=== PATIENT | female | born 1945 | race African-American/Black ===

== ENCOUNTER 2018-09-26 15:21 | Inpatient (IN) | payer MEDICARE, OTHER, MEDICAID ==
[~2018-09-26] VITALS: Ht 162.6 cm; Wt 72.2 kg
[2018-09-26] MEDS ORDERED: SODIUM CHLORIDE 0.9% 1,000 ML IV ONE (16:07)
[2018-09-26 16:56] LABS: CHLORIDE 103 mEq/L (98-107)
[2018-09-26 16:57] LABS: BASOPHILS % 0.6 % (0.0-2.0); EOSINOPHILS % 1.9 % (0.0-5.0); HEMATOCRIT. 33.7 % (36.0-48.0); HEMOGLOBIN. 11.1 g/dL (12.0-16.0); MEAN CORPUSCULAR HEMOGLOBIN 29.4 pg (28.0-32.0); MEAN CORPUSCULAR VOLUME 89.5 fL (81.0-99.0); MONOCYTES % 10.2 % (2.0-8.0); NEUTROPHILS % 66.3 % (40.0-76.0); PLATELET 195 x1000/uL (130-400); RED BLOOD CELL COUNT 3.77 mill/uL (4.2-5.4); RED CELL DISTRIBUTION WIDTH 14.5 % (11.6-14.6)
[2018-09-26 16:59] LABS: ETHANOL BLOOD < 10 mg/dL
[2018-09-26 18:03] LABS: CLARITY URINE CLOUDY (CLEAR); COLOR URINE YELLOW (YELLOW); KETONES URINE NEGATIVE (NEGATIVE); LEUKOCYTE ESTERASE URINE 3+ (NEGATIVE); NITRITE URINE POSITIVE (NEGATIVE); OCCULT BLOOD URINE 1+ (NEGATIVE); PH URINE >=9.0 (4.5-8.0); PROTEIN URINE 1+ (NEGATIVE); SPECIFIC GRAVITY URINE 1.015 (1.005-1.030)
[2018-09-26 18:11] LABS: *AMPHETAMINES SCREEN URINE NEGATIVE (NEGATIVE); *BENZODIAZEPINES SCREEN URINE NEGATIVE (NEGATIVE); *COCAINE SCREEN URINE NEGATIVE (NEGATIVE); CANNABINOID URINE SCREEN NEGATIVE (NEGATIVE)
[2018-09-26 18:12] LABS: METHADONE URINE SCREEN NEGATIVE (NEGATIVE); OPIATES URINE SCREEN NEGATIVE (NEGATIVE); PHENCYCLIDINE URINE SCREEN NEGATIVE (NEGATIVE)
[2018-09-26 18:15] LABS: *BARBITURATES SCREEN URINE NEGATIVE (NEGATIVE)
[2018-09-26] MEDS ORDERED: LORAZEPAM 2MG/ML CPJ IV NR (18:30)
[2018-09-26] MEDS: CEFTRIAXONE 1 G PREMIX 50 ML IV SCH ×2 (19:12→19:23)
[2018-09-26 22:00] VITALS: BP 153/75
[2018-09-26] MEDS ORDERED: MORPHINE SULFATE 4 MG/ML CPJ (NOT FOR IM USE) IV PRN (22:45)
[2018-09-26] MEDS ORDERED: CLONIDINE 0.1MG TABLET PO PRN (22:45)
[2018-09-26] MEDS ORDERED: IPRATROPIUM/ALBUTEROL 0.5-3(2.5)MG/3ML NEB INH PRN (22:45)
[2018-09-26] MEDS ORDERED: ONDANSETRON HCL 4MG/2ML INJ IV PRN (22:45)
[2018-09-26] MEDS ORDERED: HYDROMORPHONE HCL/PF 2MG/ML CPJ IV PRN (22:45)
[2018-09-26] MEDS ORDERED: ACETAMINOPHEN 650MG/20.3ML UDC GT PRN (22:45)
[2018-09-26] MEDS ORDERED: MAGNESIUM/ALUMINUM HYDROXIDE/SIMETHICONE 30ML UDC PO PRN (22:45)
[2018-09-26] MEDS ORDERED: DIPHENHYDRAMINE 50MG/ML VIAL IV PRN (22:45)
[2018-09-26] MEDS ORDERED: DOCUSATE SODIUM 100MG CAPSULE PO PRN (22:45)
[2018-09-26] MEDS ORDERED: GUAIFENESIN 200MG/10ML SUGAR FREE UDC PO PRN (22:45)
[2018-09-26] MEDS ORDERED: LORAZEPAM 2MG/ML CPJ IV PRN (22:45)
[2018-09-26 22:57] VITALS: BP 153/75
[2018-09-26] MEDS ORDERED: DEXTROSE 50% WATER 50ML SYRINGE IV PRN ×2 (23:30→23:45)
[2018-09-26] MEDS ORDERED: SITA100T11 MT (23:58)
[2018-09-27] VITALS (11 sets, daily range): BP systolic 112–201; BP diastolic 57–93
[2018-09-27] MEDS ORDERED: LEVVL SQ (00:14)
[2018-09-27] MEDS ORDERED: METO25TA6 PO (00:14)
[2018-09-27] MEDS ORDERED: MULT-1146 MT (00:14)
[2018-09-27] MEDS ORDERED: LEVE500T78 MT (00:14)
[2018-09-27] MEDS ORDERED: LOSA25TA12 PO (00:14)
[2018-09-27] MEDS ORDERED: CLON-457 PO (00:14)
[2018-09-27] MEDS ORDERED: FAMO20TA8 PO (00:14)
[2018-09-27] MEDS: INSULIN LISPRO 100 UNITS/ML SUBCUT SCH ×4 (08:00→21:00)
[2018-09-27] MEDS ORDERED: INSULIN LISPRO 100 UNITS/ML SUBCUT SCH (08:00)
[2018-09-27] MEDS: BLOOD SUGAR DIAGNOSTIC STRIP TEST SCH ×4 (08:25→21:00)
[2018-09-27 09:12] LABS: BG BASE EXCESS 3.8 mmol/L (-2.0-2.0); BG CARBOXYHEMOGLOBIN 0.3 % (0.5-1.5); BG DEOXYHEMOGLOBIN 2.5 % (0.0-5.0); BG FRACTION INSPIRED OXYGEN 40; BG HCO3 ACT 28.4 mmol/L (22.0-26.0); BG METHEMOGLOBIN 0.3 % (0.0-1.5); BG OXYGEN SATURATION 97.5 % (92.0-98.5); BG OXYHEMOGLOBIN 96.9 % (94.0-97.0); BG PCO2 42.9 mmHg (35.0-45.0); BG PH 7.439 (7.350-7.450); BG PO2 107.9 mmHg (75.0-100.0); BG SAMPLE SITE RIGHT BRACHIAL; BG TIDAL VOLUME(mL) 450 mL; BG TOTAL HEMOGLOBIN 10.3 g/dL (12.0-18.0); BG VENT MODE VENT - A/C; BG VENT RATE 10 set
[2018-09-27] MEDS: PANTOPRAZOLE SODIUM 40 MG/VIAL IV SCH (09:33)
[2018-09-27] MEDS: ENOXAPARIN 40MG/0.4ML SYR SUBCUT SCH (09:34)
[2018-09-27 09:36] LABS: BASOPHILS % 0.7 % (0.0-2.0); EOSINOPHILS % 1.4 % (0.0-5.0); HEMATOCRIT. 31.8 % (36.0-48.0); HEMOGLOBIN. 10.4 g/dL (12.0-16.0); LYMPHOCYTES % 16.8 % (20.0-50.0); MEAN CORPUSCULAR HEMOGLOBIN 29.3 pg (28.0-32.0); MEAN CORPUSCULAR VOLUME 89.4 fL (81.0-99.0); MEAN PLATELET VOLUME 11.1 fl (7.4-10.4); MONOCYTES % 8.8 % (2.0-8.0); NEUTROPHILS % 72.3 % (40.0-76.0); PLATELET 162 x1000/uL (130-400); RED BLOOD CELL COUNT 3.55 mill/uL (4.2-5.4); RED CELL DISTRIBUTION WIDTH 14.2 % (11.6-14.6)
[2018-09-27 09:40] LABS: PROTHROMBIN TIME 10.3 sec (9.6-11.0)
[2018-09-27 09:47] LABS: CHLORIDE 108 mEq/L (98-107)
[2018-09-27 09:51] LABS: PHOSPHORUS 3.5 mg/dL (2.5-4.9)
[2018-09-27 09:57] LABS: LDL CHOLESTEROL 42 mg/dL (5-100)
[2018-09-27 10:00] LABS: HDL CHOLESTEROL 57 mg/dL (40-59)
[2018-09-27] MEDS: IPRATROPIUM/ALBUTEROL 0.5-3(2.5)MG/3ML NEB HHN SCH ×2 (13:40→20:26)
[2018-09-27] MEDS: CLONIDINE 0.1MG TABLET PO SCH ×2 (14:51→21:53)
[2018-09-27] MEDS: CEFTRIAXONE 1 G PREMIX 50 ML IV SCH (18:27)
[2018-09-27] MEDS: METOPROLOL TARTRATE 25MG TABLET PO SCH (21:43)
[2018-09-27] MEDS: LOSARTAN POTASSIUM 25 MG TABLET PO SCH (21:43)
[2018-09-27] MEDS: LEVETIRACETAM 500MG TABLET PO SCH (21:53)
[2018-09-27] MEDS: INSULIN GLARGINE UD 100 UNITS/ML SYR SUBCUT SCH (22:07)
[2018-09-28] VITALS (12 sets, daily range): BP systolic 105–149; BP diastolic 51–92
[2018-09-28] MEDS: IPRATROPIUM/ALBUTEROL 0.5-3(2.5)MG/3ML NEB HHN SCH ×5 (01:56→21:17)
[2018-09-28] MEDS: CLONIDINE 0.1MG TABLET PO SCH ×2 (06:22→14:31)
[2018-09-28] MEDS: BLOOD SUGAR DIAGNOSTIC STRIP TEST SCH ×4 (06:22→21:00)
[2018-09-28] MEDS: INSULIN LISPRO 100 UNITS/ML SUBCUT SCH ×4 (06:22→21:00)
[2018-09-28 07:17] LABS: BASOPHILS % 0.5 % (0.0-2.0); EOSINOPHILS % 3.1 % (0.0-5.0); HEMATOCRIT. 30.4 % (36.0-48.0); HEMOGLOBIN. 9.8 g/dL (12.0-16.0); LYMPHOCYTES % 23.4 % (20.0-50.0); MEAN CORPUSCULAR HEMOGLOBIN 28.9 pg (28.0-32.0); MEAN CORPUSCULAR VOLUME 89.4 fL (81.0-99.0); MEAN PLATELET VOLUME 11.1 fl (7.4-10.4); MONOCYTES % 13.1 % (2.0-8.0); NEUTROPHILS % 59.9 % (40.0-76.0); PLATELET 169 x1000/uL (130-400)
[2018-09-28 07:53] LABS: CHLORIDE 108 mEq/L (98-107)
[2018-09-28] MEDS: PANTOPRAZOLE SODIUM 40 MG/VIAL IV SCH (09:06)
[2018-09-28] MEDS: LOSARTAN POTASSIUM 25 MG TABLET PO SCH (09:06)
[2018-09-28] MEDS: METOPROLOL TARTRATE 25MG TABLET PO SCH (09:09)
[2018-09-28] MEDS: ENOXAPARIN 40MG/0.4ML SYR SUBCUT SCH (09:10)
[2018-09-28] MEDS: LEVETIRACETAM 500MG TABLET PO SCH (10:10)
[2018-09-28] MEDS: CEFTRIAXONE 1 G PREMIX 50 ML IV SCH (17:47)
[2018-09-29] VITALS (10 sets, daily range): BP systolic 109–152; BP diastolic 45–74
[2018-09-29] MEDS: LOSARTAN POTASSIUM 25 MG TABLET PO SCH ×2 (01:16→09:03)
[2018-09-29] MEDS: LEVETIRACETAM 500MG TABLET PO SCH ×2 (01:16→08:41)
[2018-09-29] MEDS: METOPROLOL TARTRATE 25MG TABLET PO SCH ×2 (01:17→08:42)
[2018-09-29] MEDS: CLONIDINE 0.1MG TABLET PO SCH ×3 (01:41→14:00)
[2018-09-29] MEDS: INSULIN GLARGINE UD 100 UNITS/ML SYR SUBCUT SCH (01:42)
[2018-09-29] MEDS: IPRATROPIUM/ALBUTEROL 0.5-3(2.5)MG/3ML NEB HHN SCH ×3 (01:52→13:38)
[2018-09-29 06:28] LABS: BASOPHILS % 0.5 % (0.0-2.0); HEMATOCRIT. 32.8 % (36.0-48.0); HEMOGLOBIN. 10.6 g/dL (12.0-16.0); LYMPHOCYTES % 14.3 % (20.0-50.0); MEAN CORPUSCULAR HEMOGLOBIN 29.1 pg (28.0-32.0); MEAN PLATELET VOLUME 11.1 fl (7.4-10.4); MONOCYTES % 10.7 % (2.0-8.0); NEUTROPHILS % 71.5 % (40.0-76.0); PLATELET 174 x1000/uL (130-400); RED BLOOD CELL COUNT 3.65 mill/uL (4.2-5.4); RED CELL DISTRIBUTION WIDTH 14.3 % (11.6-14.6)
[2018-09-29 06:48] LABS: CHLORIDE 111 mEq/L (98-107)
[2018-09-29] MEDS: BLOOD SUGAR DIAGNOSTIC STRIP TEST SCH ×2 (07:53→12:05)
[2018-09-29] MEDS: INSULIN LISPRO 100 UNITS/ML SUBCUT SCH ×2 (08:00→12:05)
[2018-09-29] MEDS: ENOXAPARIN 40MG/0.4ML SYR SUBCUT SCH (08:41)
[2018-09-29] MEDS ORDERED: FAMOTIDINE 20MG TABLET PO SCH (09:00)
== END 2018-09-29 15:45 | DRG 871 ==
LOC: ER 15:21 → 5EST 18:23 → EDBEDREQ 18:51 → EDBEDREQSVC 18:52 → ENRESERV 20:13 → 5EST 22:10
PROVIDERS: ADMIT Family Medicine Adult Medicine; ATTEND Family Medicine Adult Medicine
PROC: 5A1945Z Respiratory Ventilation, 24-96 Consecutive Hours (ICD-10-PCS; principal; 2018-09-26)
DX: A41.59 Other Gram-negative sepsis (principal); G93.41 Metabolic encephalopathy; N39.0 Urinary tract infection, site not specified; J96.10 Chronic respiratory failure, unspecified whether with hypoxia or hypercapnia; I69.351 Hemiplegia and hemiparesis following cerebral infarction affecting right dominant side; E44.1 Mild protein-calorie malnutrition; I10 Essential (primary) hypertension; G40.909 Epilepsy, unspecified, not intractable, without status epilepticus; M20.41 Other hammer toe(s) (acquired), right foot; D64.9 Anemia, unspecified; E11.9 Type 2 diabetes mellitus without complications; Z93.0 Tracheostomy status; Z93.1 Gastrostomy status
CPT/HCPCS: 36415; 36600; 71045; 80048; 80061; 80305; 80320; 82140; 82375; 82805; 82962; 83036; 83605; 83735; 83880; 84100; 84443; 84484; 87077; 87186; 93005; 93970; 94002; 94003; 94640; 99285; A6261; C9113; J0696; J1650; J1815; J2060; J7030; J7050; J7620; A4315; G0480